=== PATIENT | male | born 1980 | race Caucasian/White ===

== ENCOUNTER → 2022-09-21 16:19 | Outpatient (BNVA) | payer OTHER, SELFPAY | PROVIDERS: PCP Internal Medicine; Visit Provider Internal Medicine Endocrinology, Diabetes & Metabolism | DX: E29.1 Testicular hypofunction (principal) | CPT/HCPCS: 99202 ==

== ENCOUNTER 2022-10-02 08:03 | Outpatient (REF) | payer OTHER, SELFPAY ==
[2022-10-02 09:31] LABS: Ferritin 104 ng/mL (20-250)
[2022-10-04 08:33] LABS: Prolactin 5.2 ng/mL (2.0-18.0)
[2022-10-07 15:12] LABS: Testosterone, Free 25.9 pg/mL (35.0-155.0); Testosterone, Total 164 ng/dL (250-1100)
== END 2022-10-02 08:04 | disposition home or self-care (01) ==
LOC: HO.LAB 08:03
PROVIDERS: Visit Provider Internal Medicine Endocrinology, Diabetes & Metabolism
DX: E29.1 Testicular hypofunction (principal)
CPT/HCPCS: 36415; 82728; 84146; 84402; 84403

== ENCOUNTER 2022-10-06 17:56 | Outpatient (REF) | payer OTHER, SELFPAY ==
--- NOTE | ~2022-10-06 | MR_ITS ---
EXAMINATION: MR BRAIN WITHOUT AND WITH CONTRAST CLINICAL INFORMATION: 42-year-old with testicular hypofunction. COMPARISON: None TECHNIQUE: Multiplanar, multisequence MRI of the brain/sella was obtained before and after the intravenous administration of 4 mL Gadavist. FINDINGS: Brain Volume: Within normal limits within the limitations of qualitative assessment. Structural: No malformations. Brain and Meninges: DWI sequence demonstrates no restricted diffusion to suggest acute or subacute cerebral ischemia. No suprasellar or juxtasellar masses are identified. The pituitary infundibulum enhances normally and appears midline. The anterior pituitary lobe show some heterogeneous enhancement without a focal lesion, which is a nonspecific finding. No remodeling of the sella turcica is identified. The cavernous sinuses enhance normally and there are normal signal voids in the carotid siphons. The brain is normal in morphology and signal intensity. No intracranial mass lesions, pathologic intracranial enhancement, space-occupying process or mass effect are identified throughout the remainder of the brain. Ventricles and Subarachnoid Spaces: The ventricular system and subarachnoid spaces are within normal limits without hydrocephalus. Orbital Structures: The visualized orbital structures are grossly unremarkable within the limitations of the study. Vascular: Signal voids are noted in the visualized major intracranial vessels. Osseous Structures, Sinuses/Mastoids, Extracranial Soft Tissues: Probable small retention cyst in the anterior left ethmoid complex. Nasal septal deviation to the left noted anteriorly with a 2.6 cm retention cyst along the floor of the left maxillary sinus and fluid signal in the right maxillary sinus. Osseous marrow signal intensity appears within normal limits. Visualized extracranial soft tissue structures are unremarkable. MR/MR head/brain wo/w con IMPRESSION: 1. Somewhat heterogeneous enhancement noted in the anterior pituitary lobe without a discrete focal lesion. Recommend follow-up MRI of the sella without and with contrast in 6 months to reassess. 2. Otherwise unremarkable MRI of the brain without and with contrast. 3. Sinonasal findings as discussed above.
== END 2022-10-06 17:57 | disposition home or self-care (01) ==
LOC: HO.MRI 17:56
PROVIDERS: Visit Provider Internal Medicine Endocrinology, Diabetes & Metabolism
DX: E29.1 Testicular hypofunction (principal)
CPT/HCPCS: 70553; A9585

== ENCOUNTER → 2022-11-23 11:24 | Outpatient (BNVA) | payer OTHER, SELFPAY | PROVIDERS: PCP Internal Medicine; Visit Provider Internal Medicine Endocrinology, Diabetes & Metabolism | DX: E29.1 Testicular hypofunction (principal); E23.7 Disorder of pituitary gland, unspecified | CPT/HCPCS: 99212 ==

== ENCOUNTER 2022-11-25 07:27 | Outpatient (REF) | payer OTHER, SELFPAY ==
[2022-11-25 07:55] LABS: Hematocrit 41.7 % (42.0-52.0)
[2022-11-25 08:45] LABS: Cortisol Random 17.3 ug/dL
[2022-11-25 10:50] LABS: Thyroid Stimulating Hormone 2.26 uIU/mL (0.32-4.0)
[2022-12-01 13:48] LABS: IGF-1 (Somatomedin C) 203 ng/mL (52-328); IGF-1 Z Score (Male) 0.8 SD (-2.0 - +2.0)
== END 2022-11-25 07:28 | disposition home or self-care (01) ==
LOC: HO.LAB 07:27
PROVIDERS: Visit Provider Internal Medicine Endocrinology, Diabetes & Metabolism
DX: E23.7 Disorder of pituitary gland, unspecified (principal); E29.1 Testicular hypofunction
CPT/HCPCS: 36415; 82533; 84305; 84439; 84443; 85014; 85018

== ENCOUNTER → 2022-12-03 10:58 | Outpatient (BNVA) | payer OTHER, SELFPAY | PROVIDERS: PCP Internal Medicine; Visit Provider Internal Medicine Endocrinology, Diabetes & Metabolism | DX: Z13.89 Encounter for screening for other disorder (principal) ==

== ENCOUNTER → 2022-12-08 13:56 | Outpatient (BNVA) | payer OTHER, SELFPAY | PROVIDERS: PCP Internal Medicine; Visit Provider Internal Medicine Endocrinology, Diabetes & Metabolism | DX: Z13.89 Encounter for screening for other disorder (principal) ==

== ENCOUNTER 2023-01-15 08:16 | Outpatient (REF) | payer OTHER, SELFPAY ==
[2023-01-15 08:42] LABS: Hematocrit 46.9 % (42.0-52.0); Hemoglobin 16.8 g/dl (14.0-18.0)
[2023-01-23 17:53] LABS: Testosterone, Free 208.3 pg/mL (35.0-155.0); Testosterone, Total 930 ng/dL (250-1100)
== END 2023-01-15 08:17 | disposition home or self-care (01) ==
LOC: HO.LAB 08:16
PROVIDERS: PCP Internal Medicine; Visit Provider Internal Medicine Endocrinology, Diabetes & Metabolism
DX: E29.1 Testicular hypofunction (principal)
CPT/HCPCS: 36415; 84402; 84403; 85014; 85018

== ENCOUNTER 2023-01-24 06:51 | Outpatient (REF) | payer OTHER, SELFPAY ==
[2023-01-30 18:59] LABS: Testosterone, Total 605 ng/dL (250-1100)
== END 2023-01-24 06:52 | disposition home or self-care (01) ==
LOC: HO.LAB 06:51
PROVIDERS: PCP Internal Medicine; Visit Provider Internal Medicine Endocrinology, Diabetes & Metabolism
DX: E29.1 Testicular hypofunction (principal)
CPT/HCPCS: 36415; 84402; 84403

== ENCOUNTER → 2023-03-24 15:30 | Outpatient (BNVA) | payer OTHER, SELFPAY | PROVIDERS: PCP Nurse Practitioner; Visit Provider Internal Medicine Endocrinology, Diabetes & Metabolism | DX: E23.7 Disorder of pituitary gland, unspecified (principal); E29.1 Testicular hypofunction | CPT/HCPCS: 99212 ==

== ENCOUNTER 2023-06-10 10:48 | Outpatient (REF) | payer OTHER, SELFPAY ==
--- NOTE | ~2023-06-10 | MR_ITS ---
EXAMINATION: MR BRAIN WITHOUT AND WITH CONTRAST CLINICAL INFORMATION: Unremarkable hypofunctioning. Pituitary disorder. COMPARISON: Brain MRI from 10/06/2022. TECHNIQUE: MRI of the brain was obtained using pituitary protocol without and following the administration of 4 mL of Gadavist intravenous contrast. FINDINGS: No focal restricted diffusion is demonstrated to suggest acute or subacute cerebral ischemia. No evidence of acute or chronic hemorrhagic products on heme-sensitive imaging. Normal parenchymal signal characteristics. The ventricles are normal in morphology and size. No abnormal mass effect. No midline shift. Normal morphology and signal intensity of the pituitary gland on precontrast imaging. Normal posterior pituitary bright spot. Enhancing profile the anterior pituitary lobe is again noted to be mildly heterogeneous. There is a potential 0.2 cm focus of hypoenhancement within the anterior inferior aspect of the pituitary gland demonstrated on sagittal imaging (image 7/14); however, this is not definitively correlated on coronal imaging. No additional hyperenhancing or hypoenhancing lesions demonstrated on post contrast imaging. The pituitary infundibulum is normal in morphology and remains midline in position. The suprasellar cistern remains patent. No abnormal mass effect on the optic chiasm. Normal positioning of the cerebellar tonsils. Normal arterial and venous vascular flow voids are present. No abnormal contrast enhancement. Normal, homogeneous marrow signal. Prominent mucosal thickening of an atelectatic right maxillary sinus. Mild to moderate mucosal thickening of the remaining paranasal sinuses. No signal abnormalities within the mastoids. MR/MR head/brain wo/w con IMPRESSION: 1. No acute intracranial abnormalities. No abnormal intracranial enhancement. 2. Mildly heterogeneous enhancement profile the pituitary gland is again noted. Potential 0.2 cm focus of hypoenhancement within the anterior inferior aspect of the pituitary gland as noted on sagittal imaging do not definitively correlated on coronal imaging. It remains possible that this represents a tiny microadenoma in the appropriate clinical setting. 3. Prominent mucosal thickening of an atelectatic right maxillary sinus. Mild to moderate mucosal thickening of the remaining paranasal sinuses.
== END 2023-06-10 10:49 | disposition home or self-care (01) ==
LOC: HO.MRI 10:48
PROVIDERS: Visit Provider Internal Medicine Endocrinology, Diabetes & Metabolism
DX: E23.7 Disorder of pituitary gland, unspecified (principal)
CPT/HCPCS: 70553; A9585

== ENCOUNTER 2023-06-11 09:07 | Outpatient (REF) | payer OTHER, SELFPAY ==
[2023-06-16 11:13] LABS: Testosterone, Free 264.8 pg/mL (35.0-155.0); Testosterone, Total 926 ng/dL (250-1100)
== END 2023-06-11 09:08 | disposition home or self-care (01) ==
LOC: HO.LAB 09:07
PROVIDERS: Visit Provider Internal Medicine Endocrinology, Diabetes & Metabolism
DX: E29.1 Testicular hypofunction (principal)
CPT/HCPCS: 36415; 84402; 84403

== ENCOUNTER 2023-06-15 07:39 | Outpatient (REF) | payer OTHER, SELFPAY ==
[2023-06-21 16:14] LABS: Testosterone, Free 109.4 pg/mL (35.0-155.0); Testosterone, Total 450 ng/dL (250-1100)
== END 2023-06-15 07:40 | disposition home or self-care (01) ==
LOC: HO.LAB 07:39
PROVIDERS: PCP Internal Medicine; Visit Provider Internal Medicine Endocrinology, Diabetes & Metabolism
DX: E29.1 Testicular hypofunction (principal)
CPT/HCPCS: 36415; 84402; 84403

== ENCOUNTER 2023-12-22 15:33 | Outpatient (REF) | payer OTHER, SELFPAY ==
[2023-12-22 16:46] LABS: Hematocrit 45.9 % (42.0-52.0); Hemoglobin 16.6 g/dl (14.0-18.0)
[2023-12-26 19:58] LABS: Testosterone, Free 84.8 pg/mL (35.0-155.0); Testosterone, Total 420 ng/dL (250-1100)
== END 2023-12-22 15:34 | disposition home or self-care (01) ==
LOC: HO.LAB 15:33
PROVIDERS: PCP Internal Medicine; Visit Provider Internal Medicine Endocrinology, Diabetes & Metabolism
DX: E29.1 Testicular hypofunction (principal)
CPT/HCPCS: 36415; 84402; 84403; 85014; 85018

== ENCOUNTER 2023-12-26 15:51 | Outpatient (AMB) | payer OTHER, SELFPAY ==
--- NOTE | 2023-12-26 15:51 | A.OFFVIS_ITS ---
Intake Vital Signs 12/26/23 15:52 Height 6 ft 0.31 in Weight 186 lb 11.704 oz BMI 25.1 BP 98/70 Blood Pressure Location Lt brachial Position Sitting Pulse 75 Pulse Source Pulse Oximeter Intake Visit Reasons: f/u hypogonadism-confirmed Intake Note: Patient present today for Hypogonadism follow up visit. Scrub Wheel Operator Required: No Accompanied by: Spouse Allergies No Known Allergies Allergy (Verified 12/26/23 15:57) Medication List - Last Reconciled 12/26/23 by Braden Nails MD blood sugar diagnostic (FreeStyle Lite Strips) As directed 1 times a day metformin 500 mg PO BID syringe with needle, safety (BD Eclipse Luer-Rosetta) As directed inject once a week testosterone cypionate 100 mg (0.5 mL) IM QWEEK 30 days vardenafil 5 mg PO DAILY PRN HPI HPI Comments History of Present Illness Details 43 YO Male who is seen in consultation a t the request of his PCP for Hypogonadism. First diagnosed with Hypogonadism couple of yrs ago with labs revealing several low total testosterone and free testosterone as well as normal LH and FSH. Was not started on Testosterone supplementation but treated with Cialis and did not found relief. Not Currently using testosterone. Currently not achieving spontaneous am erections, and unable to achieve erection when desired. Reports lower libido. Decreased facial hair and shaving frequency. Denies any change in size or shape of testicles. Denies penile discharge or scrotal tenderness. Denies any history of mumps orchitis. Denies any head trauma. Denies history of ELENA. No snoring with children who were conceived spontaneously. has 3 children . Not attempting Sense of smell intact. Denies headache or visual changes, gynecomastia or galactorrhea. Denies orthostatic symptoms, weight loss. Denies change in size of hands or feet. Denies hair loss, weight gain, cold intolerance. 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 Currently on testosterone intramuscular 100 mg Q weekly.No problem with urine stream . He does complain of intermittent snoring [facility], [facility] Medical History (Updated 11/23/22 @ 11:36 by Braden Nails MD) Abnormality of pituitary gland Hypogonadism, testicular Surgical History Hx of inguinal hernia surgery Family History Mother Diabetes Father No known health problems Social History (Updated 11/23/22 @ 11:33 by SHIRAZ Salguero) Household Members: Spouse and Family Household Members Other:: , kids Alcohol intake: never Patient Tobacco Use Status: Never used Tobacco Assessment & Plan Assessment & Plan (1) Abnormality of pituitary gland: Code(s): E23.7 - Disorder of pituitary gland, unspecified Plan: Heterogeneity of the pituitary seen on MRI and suggested repeat. Repeat MRI the pituitary showed no change but questionable heterogeneity (2) Hypogonadism, testicular: Code(s): E29.1 - Testicular hypofunction Plan: This is a 43-year-old white male with a history of labs showing secondary hypogonadism. Prolactin and ferritin levels were normal. MRI the pituitary showed ?heterogeneous pituitary? The plan is to continue the testosterone. Will check peak and trough testosterone, CBC when available. Told patient talk to primary care provider about ordering sleep study. Will also continue Levitra for erectile dysfunction Coding Level of Care Code Est Pt Level 3 (59913) Diagnoses Abnormality of pituitary gland E23.7 Hypogonadism, testicular E29.1
[2023-12-26 15:52] VITALS: BP 98/70; PULSE 75; BMI 25.1
== END 2023-12-26 16:11 | disposition home or self-care (01) ==
PROVIDERS: PCP Internal Medicine; Visit Provider Internal Medicine Endocrinology, Diabetes & Metabolism
DX: E23.7 Disorder of pituitary gland, unspecified (principal); E29.1 Testicular hypofunction
CPT/HCPCS: 99213

== ENCOUNTER → 2023-12-26 15:51 | Outpatient (BNVA) | payer OTHER, SELFPAY | PROVIDERS: Visit Provider Internal Medicine Endocrinology, Diabetes & Metabolism ==

== ENCOUNTER 2024-05-17 16:20 | Outpatient (REF) | payer OTHER, SELFPAY ==
--- NOTE | ~2024-05-17 | XR_ITS ---
EXAMINATION: XR LUMBOSACRAL SPINE WITH OBLIQUES CLINICAL INFORMATION: Low back pain. COMPARISON: None available. TECHNIQUE: 7 views of the lumbar spine. FINDINGS: Mild levoscoliosis of the lumbar spine. Bilateral sacroiliac joints are maintained. Facet arthritis in the lower lumbar spine. Moderate multilevel lumbar spondylosis. Grade 1 anterolisthesis of L5 on S1 with loss of disc space height and hypertrophic change. Mild grade 1 retrolisthesis of L4 on L5. XR/XR lumbar spine 6V w bending IMPRESSION: Moderate multilevel lumbar spondylosis.
== END 2024-05-17 16:21 | disposition home or self-care (01) ==
LOC: HO.XRAY 16:20
PROVIDERS: PCP Internal Medicine; Visit Provider Nurse Practitioner Family
DX: M54.50 Low back pain, unspecified (principal); M54.16 Radiculopathy, lumbar region
CPT/HCPCS: 72114

== ENCOUNTER 2024-08-23 14:22 | Outpatient (AMB) | payer OTHER, SELFPAY ==
--- NOTE | 2024-08-23 14:24 | MHC.OFFVIS ---
Vital Signs 08/23/24 14:28 Height 6 ft Weight 180 lb 8 oz BMI 24.5 BP 128/76 Blood Pressure Location Lt brachial Position Sitting Pulse 75 Pulse Source Pulse Oximeter Pulse Oximetry (%) 100 Intake Visit Reasons: Chronic Low Back Pain Intake Note: Pain today 1/10 Utility Bag Assembler Required: Yes Utility Bag Assembler Language: Syrian Utility Bag Assembler Services: Utility Bag Assembler Offered & Declined Utility Bag Assembler Name: Provider is fluent in Syrian Accompanied by: Spouse Allergies No Known Allergies Allergy (Verified 08/23/24 14:28) HPI HPI Chronic Low Back Pain: Details: Patient is a pleasant 43 years old Syrian speaking male presents today for initial evaluation of worsening of chronic low back pain. Patient is accompanied by his . This provider is fluent in Syrian, patient also understands partial Cambodian. Patient denies any recent trauma, injury or falls. 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 Pain also increases with prolonged standing or walking and prone sleeping. Reports heaviness and aching in the posterior bilateral legs after work day. Pain is minimal with sitting or resting and worse at the end of the day or after work which he rates at 8/10. Pain affects his daily activities and functioning, sleep, work and social interactions. Patient reports DM is well controlled with most recent A1C=6.3. He is followed by [facility] Endocrinology services. Denies any fever or chills, weight loss, abdominal or groin pain, weakness, footdrop, bladder or bowel dysfunction or saddle anesthesia. Recent lumbar spine xray noted for moderate multilevel lumbar spondylosis, grade 1 anterolisthesis of L5 on S1 with loss of disc space height and hypertrophic change and mild grade 1 retrolisthesis of L4 on L5. Patient denies previous spine surgery or injections. Patient denies alcohol, tobacco or illicit drug consumption. He consumes coffee and tea 1-2 cups per day. Patient reports good social support system. Patient will continue to participate in an active home exercise program. [place] Low Back Disability Score=14 (mild disability) Location: Lower back pain, intermittent bilateral leg pain posteriorly Duration: Chronic pain for >5 years Characteristics of symptom or complaint: Aching, tugging, pulling, wrenching, tiring, tight, sore Aggravating or associated factors: Bending, lifting, prolonged standing or walking, pulling, prone sleeping Relieving factors: Resting, heat, NSAIDs-low benefit, lidocaine Treatment: Home exercise program, heating pad, massages [facility] Medical History Abnormality of pituitary gland Hypogonadism, testicular Surgical History Hx of inguinal hernia surgery (~2021) Family History Mother Diabetes Father No known health problems Social History Household Members: Spouse and Family Household Members Other:: , kids Alcohol intake: never Patient Tobacco Use Status: Never used Tobacco Review of Systems Const All systems reviewed & are unremarkable except as noted in HPI and below Physical Exam Vital Signs: Last Vital Signs Pulse 75 08/23/24 14:28 BP 128/76 08/23/24 14:28 Pulse Ox 100 08/23/24 14:28 BMI result Body Mass Index 24.5 General: Appears afebrile. Alert and oriented. Mood and affect appropriate. Follows and participates in conversation appropriately. Respiratory effort is unlabored. No cough. Able to transition from sit to stand unassisted. Ambulates with bilaterally normal heel strike and toe off. General: Yes no CVA tenderness Back/Spine/Pelvis Other: Patient is able to walk and stand on heels and tip toes with no significant difficulty demonstrating good motor tone. Normal gait, no limping. Can flex forward to 75-80 degrees and extend to 10-15 degrees before experiencing lumbar pain. Lumbar flexion forward and bending reproduces moderate pain. Demonstrates 5/5 strength of quadriceps bilaterally as well as flexion/dorsiflexion of bilateral feet against resistance. 2+ pedal pulses bilaterally. Straight leg rise with dorsiflexion negative bilaterally. +1 patellar and achilles reflexes bilaterally. Facet loading test positive bilaterally. Trino sign, Rishabh?s, Gaenslen, Pelvic compression and Stinchfield tests are negative bilaterally. No groin pain with I/E hip rotations. Valsalva maneuver negative. Back: no CVA tenderness Cervical Spine: cervical ROM normal, No cervical muscular tenderness and No Cervical spine tenderness Thoracic/Lumbar Spine: thoracic and lumbar spine normal to inspection, No Thoracic/lumbar spine scar(s), Lasegue's sign negative, straight leg raise negative bilaterally, pain with thoraco-lumbar ROM, paraspinal muscle tenderness, thoraco-lumbar ROM limited, No thoracic spinal tenderness and lumbar spinal tenderness (L4-S1) Pelvis: no buttock tenderness Sacroiliac joints: bilaterally nontender Extrem General: Yes capillary refill normal, Yes no clubbing, cyanosis or edema and Yes no calf tenderness Results Reviewed Results Reviewed: XR LUMBOSACRAL SPINE WITH OBLIQUES 05/17/24 CLINICAL INFORMATION: Low back pain. FINDINGS: Mild levoscoliosis of the lumbar spine. Bilateral sacroiliac joints are maintained. Facet arthritis in the lower lumbar spine. Moderate multilevel lumbar spondylosis. Grade 1 anterolisthesis of L5 on S1 with loss of disc space height and hypertrophic change. Mild grade 1 retrolisthesis of L4 on L5. IMPRESSION: Moderate multilevel lumbar spondylosis. Assessment & Plan Assessment & Plan (1) Lumbar radicular pain: Code(s): M54.16 - Radiculopathy, lumbar region Category: Medical (2) Vertebrogenic low back pain: Code(s): M54.51 - Vertebrogenic low back pain Category: Medical (3) Lumbosacral spondylosis: Code(s): M47.817 - Spondylosis without myelopathy or radiculopathy, lumbosacral region Category: Medical (4) Lumbar degenerative disc disease: Code(s): M51.36 - Other intervertebral disc degeneration, lumbar region Category: Medical (5) Low back pain: Code(s): M54.50 - Low back pain, unspecified Category: Medical Plan Patient presents today with axial and discogenic low back pain which is exacerbated with lumbar flexion indicating a discogenic source and axial rotations and painful facet loading. We will obtain MRI of the lumbar spine to assess for neural integrity, compression, assess for any degenerative changes on the endplates and follow up on recent xray findings. Continue daily physical activity as tolerated, avoid pain producing movements, encouraged good posture, adequate hydration and proper lifting mechanics. Patient will continue Tylenol, NSAIDs, heat therapy, massage for symptomatic relief. Patient is aware to call if pain worsens or if he develops any red flag symptoms to seek emergency care. Patient denies any cauda equina syndrome symptoms at this time. All questions and concerns have been answered and patient agrees with the treatment plan. Follow-up for MRI results and sooner as needed. Orders: Orders MR lumbar spine wo con Today M47.817 - Spondylosis without myelopathy or radiculopathy, lumbosacral region, M54.16 - Radiculopathy, lumbar region, M54.51 - Vertebrogenic low back pain Coding Level of Care Code New Pt Level 4 (07251) Diagnoses Lumbar radicular pain M54.16 Vertebrogenic low back pain M54.51 Lumbosacral spondylosis M47.817 Lumbar degenerative disc disease M51.36 Low back pain M54.50
[2024-08-23 14:28] VITALS: BP 128/76; PULSE 75; O2SAT 100; BMI 24.5
== END 2024-08-23 15:02 | disposition home or self-care (01) ==
PROVIDERS: PCP Internal Medicine; Referring Provider Internal Medicine; Visit Provider Nurse Practitioner Family
DX: M54.16 Radiculopathy, lumbar region (principal); M54.51 Vertebrogenic low back pain; M47.817 Spondylosis without myelopathy or radiculopathy, lumbosacral region; M51.36 Other intervertebral disc degeneration, lumbar region; M54.50 Low back pain, unspecified
CPT/HCPCS: 99204

== ENCOUNTER → 2024-08-23 14:22 | Outpatient (BNVA) | payer OTHER, SELFPAY | PROVIDERS: PCP Internal Medicine; Referring Provider Internal Medicine; Visit Provider Nurse Practitioner Family ==

== ENCOUNTER 2024-08-30 15:56 | Outpatient (REF) | payer OTHER, SELFPAY ==
[2024-08-30 17:12] LABS: Hematocrit 43.9 % (42.0-52.0); Hemoglobin 16.2 g/dl (14.0-18.0)
[2024-09-06 20:23] LABS: Testosterone, Free 71.2 pg/mL (35.0-155.0); Testosterone, Total 354 ng/dL (250-1100)
== END 2024-08-30 15:57 | disposition home or self-care (01) ==
LOC: HO.LAB 15:56
PROVIDERS: PCP Internal Medicine; Visit Provider Internal Medicine Endocrinology, Diabetes & Metabolism
DX: E29.1 Testicular hypofunction (principal)
CPT/HCPCS: 36415; 84402; 84403; 85014; 85018

== ENCOUNTER 2024-08-30 15:56 | Outpatient (AMB) | payer OTHER, SELFPAY ==
[2024-08-30 16:12] VITALS: BP 118/70; PULSE 80; BMI 24.5
--- NOTE | 2024-08-30 16:12 | A.OFFVIS_ITS ---
Vital Signs 08/30/24 16:12 Height 6 ft Weight 180 lb 12.465 oz BMI 24.5 BP 118/70 Blood Pressure Location Rt brachial Position Sitting Pulse 80 Pulse Source Pulse Oximeter Intake Visit Reasons: f/u hypogonadism-confirmed Intake Note: Patient present today for Hypogonadism follow up visit. Director Of Operations For Therapy Required: Yes Director Of Operations For Therapy Language: Jordanian Director Of Operations For Therapy Services: Director Of Operations For Therapy Offered & Declined Accompanied by: Spouse Allergies No Known Allergies Allergy (Verified 08/23/24 14:28) HPI Comments Details: 43 YO Male who is seen in consultation at the request of his PCP for Hypogonadism. First diagnosed with Hypogonadism couple of yrs ago with labs revealing several low total testosterone and free testosterone as well as normal LH and FSH. Was not started on Testosterone supplementation but treated with Cialis and did not found relief. Not Currently using testosterone. Currently not achieving spontaneous am erections, and unable to achieve erection when desired. Reports lower libido. Decreased facial hair and shaving freque ncy. Denies any change in size or shape of testicles. Denies penile discharge or scrotal tenderness. Denies any history of mumps orchitis. Denies any head trauma. Denies history of ELENA. No snoring with children who were conceived spontaneously. has 3 children . Not attempting Sense of smell intact. Denies headache or visual changes, gynecomastia or galactorrhea. Denies orthostatic symptoms, weight loss. Denies change in size of hands or feet. Denies hair loss, weight gain, cold intolerance. 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 Currently on testosterone intramuscular 75 mg Q weekly.No problem with urine stream . He does not complain of snoring [facility] Medical History Abnormality of pituitary gland Hypogonadism, testicular Surgical History Hx of inguinal hernia surgery (~2021) Family History Mother Diabetes Father No known health problems Social History Household Members: Spouse and Family Household Members Other:: , kids Alcohol intake: never Patient Tobacco Use Status: Never used Tobacco Physical Exam Vital Signs: Last Vital Signs Pulse 80 08/30/24 16:12 BP 118/70 08/30/24 16:12 BMI result Body Mass Index 24.5 Assessment & Plan Assessment & Plan (1) Hypogonadism, testicular: Code(s): E29.1 - Testicular hypofunction Category: Medical Plan: This is a 43-year-old white male with a history of labs showing secondary hypogonadism. Prolactin and ferritin levels were normal. MRI the pituitary showed ?heterogeneous pituitary? The plan is to continue the testosterone. Will check peak and trough testosterone, CBC . Will also continue Levitra for erectile dysfunction Orders: Orders Testosterone, Free/Total 1 Week E29.1 - Testicular hypofunction Testosterone, Free/Total 2 Weeks E29.1 - Testicular hypofunction Hematocrit 1 Week E29.1 - Testicular hypofunction Hemoglobin 1 Week E29.1 - Testicular hypofunction Coding Level of Care Code Est Pt Level 3 (15826) Diagnoses Hypogonadism, testicular E29.1
== END 2024-08-30 16:24 | disposition home or self-care (01) ==
PROVIDERS: PCP Internal Medicine; Visit Provider Internal Medicine Endocrinology, Diabetes & Metabolism
DX: E29.1 Testicular hypofunction (principal)
CPT/HCPCS: 99213

== ENCOUNTER 2024-09-03 15:29 | Outpatient (REF) | payer OTHER, SELFPAY ==
[2024-09-03 17:02] LABS: Hematocrit 44.8 % (42.0-52.0); Hemoglobin 16.6 g/dl (14.0-18.0)
[2024-09-09 04:28] LABS: Testosterone, Free 234.9 pg/mL (35.0-155.0); Testosterone, Total 830 ng/dL (250-1100)
== END 2024-09-03 15:30 | disposition home or self-care (01) ==
LOC: HO.LAB 15:29
PROVIDERS: PCP Internal Medicine; Visit Provider Internal Medicine Endocrinology, Diabetes & Metabolism
DX: E29.1 Testicular hypofunction (principal)
CPT/HCPCS: 36415; 84402; 84403; 85014; 85018

== ENCOUNTER 2025-04-26 15:19 | Outpatient (REF) | payer OTHER, SELFPAY ==
[2025-04-26 15:53] LABS: Hematocrit 43.6 % (42.0-52.0); Hemoglobin 15.8 g/dl (14.0-18.0)
[2025-04-30 16:58] LABS: Testosterone, Free 73.1 pg/mL (35.0-155.0); Testosterone, Total 318 ng/dL (250-1100)
== END 2025-04-26 15:20 | disposition home or self-care (01) ==
LOC: HO.LAB 15:19
PROVIDERS: PCP Internal Medicine; Visit Provider Internal Medicine Endocrinology, Diabetes & Metabolism
DX: E29.1 Testicular hypofunction (principal)
CPT/HCPCS: 36415; 84402; 84403; 85014; 85018

== ENCOUNTER 2025-04-29 15:26 | Outpatient (REF) | payer OTHER, SELFPAY ==
[2025-05-02 21:13] LABS: Testosterone, Total 1095 ng/dL (250-1100)
== END 2025-04-29 15:27 | disposition home or self-care (01) ==
LOC: HO.LAB 15:26
PROVIDERS: PCP Internal Medicine; Visit Provider Internal Medicine Endocrinology, Diabetes & Metabolism
DX: E29.1 Testicular hypofunction (principal)
CPT/HCPCS: 36415; 84402; 84403

== ENCOUNTER 2025-05-07 16:34 | Outpatient (AMB) | payer OTHER, SELFPAY ==
--- NOTE | 2025-05-07 16:35 | A.OFFVIS_ITS ---
Vital Signs 05/07/25 16:36 Height 6 ft Weight 174 lb 9.698 oz BMI 23.7 BP 98/68 Blood Pressure Location Rt brachial Position Sitting Pulse 75 Pulse Source Pulse Oximeter Pulse Oximetry (%) 95 Oxygen Delivery Method Room Air Intake Visit Reasons: Hypogonadism Intake Note: Patient present today for Hypogonadism follow up visit. Entry Level Recruiter Required: No Accompanied by: Spouse Allergies No Known Allergies Allergy (Verified 05/07/25 16:36) HPI Comments Details: 43 YO Male who is seen in consultation at the request of his PCP for Hypogonadism. First diagnosed with Hypogonadism couple of yrs ago with labs revealing several low total testosterone and free testosterone as well as normal LH and FSH. Was not started on Testosterone supplementation but treated with Cialis and did not found relief. Currently using testosterone. Currently not achieving spontaneous am erections, and unable to achieve erection when desired. Reports lower libido. Decreased facial hair and shaving frequency. Denies any change in size or shape of testicles. Denies penile discharge or scrotal tenderness. Denies any history of mumps orchitis. Denies any head trauma. Denies history of ELENA. No snoring with children who were conceived spontaneously. has 3 children . Not attempting Sense of smell intact. Denies headache or visual changes, gynecomastia or galactorrhea. Denies orthostatic symptoms, weight loss. Denies change in size of hands or feet. Denies hair loss, weight gain, cold intolerance. 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 Currently on testosterone intramuscular 75 mg Q weekly.No problem with urine stream . He does not complain of snoring. Peak level was supra physiologic PFSH Medical History Abnormality of pituitary gland Hypogonadism, testicular Surgical History Hx of inguinal hernia surgery (~2021) Family History Mother Diabetes Father No known health problems Social History Household Members: Spouse and Family Household Members Other:: , kids Alcohol intake: never Patient Tobacco Use Status: Never used Tobacco Physical Exam Vital Signs: Last Vital Signs Pulse 75 05/07/25 16:36 BP 98/68 05/07/25 16:36 Pulse Ox 95 05/07/25 16:36 Oxygen Delivery Method Room Air 05/07/25 16:36 BMI result Body Mass Index 23.7 Assessment & Plan Assessment & Plan (1) Hypogonadism, testicular: Code(s): E29.1 - Testicular hypofunction Category: Medical Plan: This is a 43-year-old white male with a history of labs showing secondary hypogonadism. Prolactin and ferritin levels were normal. 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 Currently on testosterone 75 mg Q weekly. Peak levels were supraphysiologic The plan is to have the patient hold the testosterone and recheck testosterone level in a.m. fasting in 6 weeks time. We will continue Levitra for erectile dysfunction. If testosterone level is low, to restart testosterone 50 mg Q weekly at that point Orders: Orders Testosterone, Free/Total 6 Weeks E29.1 - Testicular hypofunction Medications: Changed From testosterone cypionate 75 mg intramuscular q.week 0.375 mL weekly 75 mg (0.375 mL) IM QWEEK 30 days 100 mL 5RF E29.1 - Testicular hypofunction To testosterone cypionate 75 mg intramuscular q.week 0.375 mL weekly 50 mg (0.25 mL) IM QWEEK 30 days 1.25 mL 5RF E29.1 - Testicular hypofunction Refilled vardenafil 5 mg PO DAILY PRN 24 tabs 4RF sexual activity syringe with needle, safety (BD Eclipse Luer-Rosetta) As directed inject once a week 6 ea 5RF Coding Level of Care Code Est Pt Level 3 (86335) Diagnoses Hypogonadism, testicular E29.1
[2025-05-07 16:36] VITALS: BP 98/68; PULSE 75; O2SAT 95; BMI 23.7
== END 2025-05-08 08:02 | disposition home or self-care (01) ==
LOC: HO.ENCR 16:34
PROVIDERS: PCP Internal Medicine; Visit Provider Internal Medicine Endocrinology, Diabetes & Metabolism
DX: E29.1 Testicular hypofunction (principal)
CPT/HCPCS: 99213

== ENCOUNTER 2025-06-18 15:26 | Outpatient (REF) | payer BC, SELFPAY ==
[2025-06-27 11:39] LABS: Testosterone, Free 21.4 pg/mL (35.0-155.0)
== END 2025-06-18 15:27 | disposition home or self-care (01) ==
LOC: HO.LAB 15:26
PROVIDERS: PCP Internal Medicine; Visit Provider Internal Medicine Endocrinology, Diabetes & Metabolism
DX: E29.1 Testicular hypofunction (principal)
CPT/HCPCS: 36415; 84402; 84403

== ENCOUNTER 2025-08-09 15:20 | Outpatient (REF) | payer BC, SELFPAY ==
[2025-08-09 15:56] LABS: Hematocrit 41.9 % (42.0-52.0); Hemoglobin 15.4 g/dl (14.0-18.0)
== END 2025-08-09 15:21 | disposition home or self-care (01) ==
LOC: HO.LAB 15:20
PROVIDERS: PCP Internal Medicine; Visit Provider Internal Medicine Endocrinology, Diabetes & Metabolism
DX: E29.1 Testicular hypofunction (principal)
CPT/HCPCS: 36415; 84403; 85014; 85018

== ENCOUNTER 2025-08-28 16:03 | Outpatient (AMB) | payer BC, SELFPAY ==
[2025-08-28 16:07] VITALS: BP 106/60; PULSE 77; O2SAT 96; BMI 24.1
--- NOTE | 2025-08-28 16:07 | MHC.OFFVIS ---
Vital Signs 08/28/25 16:07 Height 6 ft Weight 177 lb 11.081 oz BMI 24.1 BP 106/60 Blood Pressure Location Lt brachial Position Sitting Pulse 77 Pulse Source Pulse Oximeter Pulse Oximetry (%) 96 Oxygen Delivery Method Room Air Intake Visit Reasons: Hypogonadism Intake Note: Patient present today for Hypogonadism follow up visit. Seat Trimmer Required: No Seat Trimmer Services: Seat Trimmer Offered & Declined ([place]) Information Interpreted: clinical only Accompanied by: Spouse Allergies No Known Allergies Allergy (Verified 05/07/25 16:36) Medication List - Last Reconciled 08/28/25 by Braden Nails MD blood sugar diagnostic (FreeStyle Lite Strips) As directed 1 times a day lancets (FreeStyle Lancets) As directed lidocaine 5% leave on most painful area for up to 12 hrs topical meloxicam 15 mg PO DAILY PRN metformin 500 mg PO BID syringe with needle (BD Luer-Rosetta Syringe) As directed syringe with needle, safety (BD Eclipse Luer-Rosetta) As directed inject once a week testosterone cypionate 50 mg (0.25 mL) IM QWEEK 90 days vardenafil 5 mg PO DAILY PRN HPI Comments Details: 44 YO Male who is seen in consultation at the request of his PCP for Hypogonadism. First diagnosed with Hypogonadism couple of yrs ago with labs revealing several low total testosterone and free testosterone as well as normal LH and FSH. Was not started on Testosterone supplementation but treated with Cialis and did not found relief. Currently using testosterone. Currently not achieving spontaneous am erections, and unable to achieve erection when desired. Reports lower libido. Decreased facial hair and shaving frequency. Denies any change in size or shape of testicles. Denies penile discharge or scrotal tenderness. Denies any history of mumps orchitis. Denies any head trauma. Denies history of ELENA. No snoring with children who were conceived spontaneously. has 3 children . Not attempting Sense of smell intact. Denies headache or visual changes, gynecomastia or galactorrhea. Denies orthostatic symptoms, weight loss. Denies change in size of hands or feet. Denies hair loss, weight gain, cold intolerance. 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 Currently on testosterone intramuscular 50 mg Q weekly.No problem with urine stream . He does not complain of snoring. Peak level was slightly supra physiologic on 75 ug PFSH Medical History Abnormality of pituitary gland Hypogonadism, testicular Surgical History Hx of inguinal hernia surgery (~2021) Family History Mother Diabetes Father No known health problems Social History Household Members: Spouse and Family Household Members Other:: , kids Alcohol intake: never Patient Tobacco Use Status: Never used Tobacco Physical Exam Vital Signs: Last Vital Signs Pulse 77 08/28/25 16:07 BP 106/60 08/28/25 16:07 Pulse Ox 96 08/28/25 16:07 Oxygen Delivery Method Room Air 08/28/25 16:07 BMI result Body Mass Index 24.1 Assessment & Plan Assessment & Plan (1) Hypogonadism, testicular: Code(s): E29.1 - Testicular hypofunction Category: Medical Plan: This is a 43-year-old white male with a history of labs showing secondary hypogonadism. Prolactin and ferritin levels were normal. 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 Currently on testosterone 50 mg Q weekly. Peak levels were slightly supraphysiologic on 75 mcg The plan is to increase the testosterone 75 mg Q weekly and recheck peak and trough as well as CBC in 6 weeks' time Orders: Orders Testosterone, Free/Total 6 Weeks E29.1 - Testicular hypofunction Testosterone, Free/Total 7 Weeks E29.1 - Testicular hypofunction Hematocrit 6 Weeks E29.1 - Testicular hypofunction Hemoglobin 6 Weeks E29.1 - Testicular hypofunction Medications: Changed From testosterone cypionate 50 mg intramuscular q.week 0.25 mL weekly 50 mg (0.25 mL) IM QWEEK 90 days 12 mL 5RF E29.1 - Testicular hypofunction To testosterone cypionate 50 mg intramuscular q.week 0.25 mL weekly 75 mg (0.375 mL) IM QWEEK 90 days 4.875 mL 5RF E29.1 - Testicular hypofunction From testosterone cypionate 50 mg intramuscular q.week 0.25 mL weekly 75 mg (0.375 mL) IM QWEEK 90 days 4.875 mL 5RF E29.1 - Testicular hypofunction To testosterone cypionate 75 mg intramuscular q.week 0.375 mL weekly 75 mg (0.375 mL) IM QWEEK 4.875 mL 5RF 90 days E29.1 - Testicular hypofunction Coding Level of Care Code Est Pt Level 3 (77471) Diagnoses Hypogonadism, testicular E29.1
== END 2025-08-28 16:26 | disposition home or self-care (01) ==
LOC: HO.ENCR 16:04
PROVIDERS: PCP Internal Medicine; Visit Provider Internal Medicine Endocrinology, Diabetes & Metabolism
DX: E29.1 Testicular hypofunction (principal)
CPT/HCPCS: 99213

== ENCOUNTER 2025-10-14 15:20 | Outpatient (REF) | payer BC, SELFPAY ==
[2025-10-14 16:24] LABS: Hematocrit 42.2 % (42.0-52.0); Hemoglobin 15.4 g/dl (14.0-18.0)
[2025-10-19 19:14] LABS: Testosterone, Free 160.2 pg/mL (35.0-155.0)
== END 2025-10-14 15:21 | disposition home or self-care (01) ==
LOC: HO.LAB 15:20
PROVIDERS: PCP Internal Medicine; Visit Provider Internal Medicine Endocrinology, Diabetes & Metabolism
DX: E29.1 Testicular hypofunction (principal)
CPT/HCPCS: 36415; 84402; 84403; 85014; 85018

== ENCOUNTER 2025-10-26 07:40 | Outpatient (REF) | payer BC, SELFPAY ==
[2025-10-31 13:23] LABS: Testosterone, Free 41.4 pg/mL (35.0-155.0)
== END 2025-10-26 07:41 | disposition home or self-care (01) ==
LOC: HO.LAB 07:40
PROVIDERS: PCP Internal Medicine; Visit Provider Internal Medicine Endocrinology, Diabetes & Metabolism
DX: E29.1 Testicular hypofunction (principal)
CPT/HCPCS: 36415; 84402; 84403